=== PATIENT | male | born 1985 | race Caucasian/White ===

== ENCOUNTER 2017-03-20 03:04 | Emergency (ER) | payer SELFPAY ==
[~2017-03-20] VITALS: Ht 170.2 cm; Wt 90.9 kg
[2017-03-20] MEDS ORDERED: ULTRAM50 M1 PO (03:58)
[2017-03-20 04:25] VITALS: BP 138/68
[2017-03-21] MEDS ORDERED: ULTRAM50 M1 PO (21:35)
== END 2017-03-20 04:25 | disposition home or self-care (01) | DRG 563 ==
LOC: ED 03:04
PROC: 2W3EX1Z Immobilization of Right Hand using Splint (ICD-10-PCS; principal; 2017-03-20)
DX: S62.314A Displaced fracture of base of fourth metacarpal bone, right hand, initial encounter for closed fracture (principal); W22.09XA Striking against other stationary object, initial encounter; Y92.009 Unspecified place in unspecified non-institutional (private) residence as the place of occurrence of the external cause

== ENCOUNTER 2017-03-21 20:39 | Emergency (ER) | payer SELFPAY ==
[~2017-03-21] VITALS: Ht 170.2 cm; Wt 95.0 kg
[~2017-03-21 20:39] MED LIST: ULTRAM50 M1 PO
[2017-03-21] MEDS ORDERED: ULTRAM50 M1 PO (21:35)
[2017-03-21 21:40] VITALS: BP 149/74
== END 2017-03-21 21:40 | disposition home or self-care (01) | DRG 561 ==
LOC: ED 20:39
PROC: 2W0 Placement, Anatomical Regions, Change (ICD-10-PCS; principal; 2017-03-21)
DX: S62.314D Displaced fracture of base of fourth metacarpal bone, right hand, subsequent encounter for fracture with routine healing (principal); R22.31 Localized swelling, mass and lump, right upper limb

== ENCOUNTER 2018-06-01 10:56 | Emergency (ER) | payer OTHER ==
[~2018-06-01] VITALS: Ht 170.2 cm; Wt 100.0 kg
[2018-06-01] MEDS ORDERED: ADDERALL XR30 MG PO (11:36)
[2018-06-01] MEDS ORDERED: VIIBRYD20 MG PO (11:37)
[2018-06-01] MEDS ORDERED: TIZANIDINE HCL2 MG PO (11:39)
[2018-06-01 12:11] LABS: URINE BILIRUBIN - DIPSTICK NEGATIVE (NEGATIVE); URINE BLOOD DIPSTICK NEGATIVE (NEGATIVE); URINE COLOR YELLOW; URINE GLUCOSE - DIPSTICK NEGATIVE (NEGATIVE); URINE KETONE NEGATIVE (NEGATIVE); URINE LEUK ESTERASE NEGATIVE (NEGATIVE); URINE NITRITE - DIPSTICK NEGATIVE (Negative); URINE PROTEIN - DIPSTICK NEGATIVE (NEG-TRACE)
[2018-06-01 12:12] LABS: URINE CLARITY CLEAR
[2018-06-01] MEDS ORDERED: ULTRAM50 M1 PO (12:16)
[2018-06-01 12:27] VITALS: BP 126/88
== END 2018-06-01 12:27 | disposition home or self-care (01) | DRG 395 ==
LOC: ED 10:56
PROVIDERS: Emergency Medicine
DX: K40.90 Unilateral inguinal hernia, without obstruction or gangrene, not specified as recurrent (principal); F17.210 Nicotine dependence, cigarettes, uncomplicated; F32.9 Major depressive disorder, single episode, unspecified; F43.10 Post-traumatic stress disorder, unspecified; F90.9 Attention-deficit hyperactivity disorder, unspecified type; F41.9 Anxiety disorder, unspecified

== ENCOUNTER 2020-08-28 06:12 | Emergency (ER) | payer BC ==
[~2020-08-28] VITALS: Ht 170.2 cm; Wt 92.4 kg
[~2020-08-28 06:12] MED LIST changes: +ADDERALL XR30 MG PO; +TIZANIDINE HCL2 MG PO; +VIIBRYD20 MG PO
[2020-08-28] MEDS ORDERED: BUSPAR5 MG PO (06:43)
[2020-08-28] MEDS ORDERED: TRAZODONE50 MG PO (06:44)
[2020-08-28] MEDS ORDERED: ADDERALL10 MG PO (06:44)
[2020-08-28] MEDS ORDERED: WELLBUTRIN150 M1 PO (06:45)
[2020-08-28] MEDS ORDERED: TRILEPTAL150 M1 PO (06:46)
[2020-08-28] MEDS ORDERED: TYLENOL # 31 TAB PO (06:51)
[2020-08-28] MEDS ORDERED: MOTRIN800 MG PO (06:51)
[2020-08-28 07:22] VITALS: BP 141/80
== END 2020-08-28 07:29 | disposition home or self-care (01) | DRG 563 ==
LOC: ED 06:12
DX: S62.306A Unspecified fracture of fifth metacarpal bone, right hand, initial encounter for closed fracture (principal); F41.9 Anxiety disorder, unspecified; F32.9 Major depressive disorder, single episode, unspecified; F17.200 Nicotine dependence, unspecified, uncomplicated; W22.09XA Striking against other stationary object, initial encounter; Y93.89 Activity, other specified; Y92.149 Unspecified place in prison as the place of occurrence of the external cause; Y99.0 Civilian activity done for income or pay

== ENCOUNTER 2021-09-08 08:04 | Emergency (ER) | payer OTHER ==
[~2021-09-08] VITALS: Ht 170.2 cm; Wt 90.0 kg
[~2021-09-08 08:04] MED LIST changes: +ADDERALL10 MG PO; +BUSPAR5 MG PO; +MOTRIN800 MG PO; +TRAZODONE50 MG PO; +TRILEPTAL150 M1 PO; +TYLENOL # 31 TAB PO; +WELLBUTRIN150 M1 PO
[2021-09-08 09:21] VITALS: BP 129/82
== END 2021-09-08 09:32 | disposition home or self-care (01) | DRG 605 ==
LOC: ED 08:04
PROC: 0HQGXZZ Repair Left Hand Skin, External Approach (ICD-10-PCS; principal; 2021-09-08)
DX: S61.012A Laceration without foreign body of left thumb without damage to nail, initial encounter (principal); F41.9 Anxiety disorder, unspecified; F32.A Depression, unspecified; F17.200 Nicotine dependence, unspecified, uncomplicated; W26.0XXA Contact with knife, initial encounter; Y93.G3 Activity, cooking and baking; Y92.511 Restaurant or cafe as the place of occurrence of the external cause; Y99.0 Civilian activity done for income or pay